=== PATIENT | male | born 1995 | race African-American/Black ===

== ENCOUNTER 2019-04-27 16:45 | Emergency (ER) | payer OTHER ==
[~2019-04-27] VITALS: Ht 172.7 cm; Wt 82.1 kg
[2019-04-27 19:44] LABS: CHLAMYDIA DNA AMPLIFICATION NEGATIVE (NEGATIVE); GC DNA AMPLIFICATION NEGATIVE (NEGATIVE)
[2019-04-27] MEDS ORDERED: DOXY100C37 PO (20:13)
[2019-04-27] MEDS ORDERED: cefTRIAXone SOD 250 MG VIAL (J0696) IM ONE (20:15)
[2019-04-27] MEDS ORDERED: AZITHROMYCIN 250 MG TAB PO ONE (20:15)
[2019-04-27] MEDS ORDERED: LIDOCAINE 1% SDV 5 ML VIAL DILUENT ONE (20:15)
[2019-04-27 20:35] VITALS: BP 125/72
== END 2019-04-27 20:36 | disposition home or self-care (01) ==
LOC: M ED 16:45
DX: Z20.2 Contact with and (suspected) exposure to infections with a predominantly sexual mode of transmission (principal); R30.0 Dysuria; F17.210 Nicotine dependence, cigarettes, uncomplicated
CPT/HCPCS: 81001; 87086; 87661; 96372; 99283; J0696

== ENCOUNTER 2019-06-26 07:24 | Emergency (ER) | payer OTHER ==
[~2019-06-26] VITALS: Ht 172.7 cm; Wt 86.0 kg
[~2019-06-26 07:24] MED LIST: DOXY100C37 PO
[2019-06-26 09:28] VITALS: BP 135/78
[2019-06-26 09:50] LABS: CHLAMYDIA DNA AMPLIFICATION NEGATIVE (NEGATIVE); GC DNA AMPLIFICATION NEGATIVE (NEGATIVE)
[2019-06-27] MEDS ORDERED: BACT800T5 PO (08:02)
== END 2019-06-26 09:30 | disposition home or self-care (01) ==
LOC: M ED 07:24
DX: R30.0 Dysuria (principal); M54.5 Low back pain; R36.9 Urethral discharge, unspecified

== ENCOUNTER → 2019-07-06 | Outpatient (REF) | payer OTHER ==
[~2019-07-06] MED LIST changes: +BACT800T5 PO
[2019-07-06 14:24] LABS: CHLAMYDIA DNA AMPLIFICATION NEGATIVE (NEGATIVE); GC DNA AMPLIFICATION NEGATIVE (NEGATIVE)
== END ==
LOC: M SMT 12:49
PROVIDERS: ATTEND Urology
DX: N34.2 Other urethritis (principal)
CPT/HCPCS: 87491; 87591; G0463

== ENCOUNTER → 2019-07-11 | Outpatient (REF) | payer OTHER ==
[2019-07-11 19:06] LABS: CHLAMYDIA DNA AMPLIFICATION NEGATIVE (NEGATIVE); GC DNA AMPLIFICATION NEGATIVE (NEGATIVE)
== END ==
LOC: M SMT 16:48
PROVIDERS: ATTEND Urology
DX: N34.2 Other urethritis (principal)

== ENCOUNTER 2020-06-09 21:53 | Emergency (ER) | payer OTHER ==
[~2020-06-09] VITALS: Ht 172.7 cm; Wt 91.7 kg
[2020-06-09 21:53] VITALS: BP 149/79
== END 2020-06-09 23:50 | disposition home or self-care (01) ==
LOC: M ED 21:53
DX: Z20.2 Contact with and (suspected) exposure to infections with a predominantly sexual mode of transmission (principal); F17.210 Nicotine dependence, cigarettes, uncomplicated